=== PATIENT | female | born 1960 | race Caucasian/White ===

== ENCOUNTER → 2023-03-16 | Outpatient (CLI) | payer BC, OTHER ==
[~2023-03-16] VITALS: Ht 167.7 cm; Wt 85.4 kg
[~2023-03-16] MED LIST: ALEN70TA80 PO; AMIT150T PO; CALC-867 PO; CYCL10TA25 PO; GABA-486 PO; LISI20TA26 PO; SIMV40TA25 PO; [UNRECOGNIZED DRUG - OTHER]
== END | disposition home or self-care (01) ==
LOC: PREOP 05:23
PROVIDERS: ATTEND Specialist
DX: Z01.818 Encounter for other preprocedural examination (principal)

== ENCOUNTER 2023-03-20 08:30 | Day surgery (SDC) | payer BC, OTHER ==
[~2023-03-20] VITALS: Ht 167.7 cm; Wt 85.4 kg
[2023-03-20] VITALS (12 sets, daily range): BP systolic 121–156; BP diastolic 53–83
[~2023-03-20 08:30] MED LIST changes: +GEMCITABINE BLADIN ONE; +NS BLADIN ONE
[2023-03-20] MEDS ORDERED: GEMCITABINE 1 GM/NS 50 ML X 2 SYRINGES IR ONE ×2 (08:45)
[2023-03-20] MEDS: LACTATED RINGERS 1,000 ML 1,000 ML IV PRN ×2 (08:59→12:26)
--- NOTE | 2023-03-20 09:21 | Progress Note-Pre Operative ---
Pre-Operative Progress Note Date of Available H&P: Mar 16, 2023 Date H&P Reviewed: Mar 20, 2023 Time H&P Reviewed: 09:20 History & Physical: H&P Reviewed, No changes noted Pre-Operative Diagnosis: Recurrent bladder cancer Erickson HERNANDEZ MD Mar 20, 2023 09:21
[2023-03-20] MEDS ORDERED: fentaNYL INJECTION 100 MCG/2 ML VIAL ONE ×2 (09:53→12:20)
[2023-03-20] MEDS ORDERED: MIDAZOLAM INJ 2 MG/2 ML VIAL ONE (09:53)
--- NOTE | 2023-03-20 10:33 | Discharge Inst-Urology ---
Discharge Inst-Urology Reconcile Patient Problems Problems Reviewed?: Yes Final Diagnosis recurrent bladder tumor Patient Instructions/Follow Up Plan/Assessment/Instructions I will call you with pathology results in one week. Please make f/u appt in 3 months for cystoscopy in the office Increase oral fluids for 48 hours and then as needed. Diet and Activity as tolerated. If questions or concerns contact your physician Or seek help at emergency department. Erickson HERNANDEZ MD Mar 20, 2023 10:32
--- NOTE | 2023-03-20 11:34 | Progress Note-Post Operative ---
Post-Operative Progess Note Surgeon (s)/Ammonium Hydroxide Operator (s) Surgeon Erickson HERNANDEZ MD Ammonium Hydroxide Operator n/a Pre-Operative Diagnosis Recurrent bladder cancer Post-Operative Diagnosis same Post-Op Procedure Note Date of Procedure: Mar 20, 2023 Name of Procedure Performed: cysto/turbt intravesical instillation of gemcitabine Description & Findings Description and Findings: n/a Anesthesia Type general Estimated Blood Loss minimal Packing none. Specimen(s) collected/removed bladder tumor Erickson HERNANDEZ MD Mar 20, 2023 11:34
[2023-03-20] MEDS ORDERED: proPOfol INJECTION 200 MG/20 ML VIAL IV ONE (11:54)
[2023-03-20] MEDS ORDERED: SEVOFLURANE (ULTANE) 15 ML INHAL SOLN ONE (11:54)
[2023-03-20] MEDS ORDERED: dexAMETHasone INJ 10 MG/ML 1 ML VIAL ONE (11:54)
[2023-03-20] MEDS ORDERED: LIDOCAINE PF 2% 5 ML VIAL ONE (11:54)
[2023-03-20] MEDS ORDERED: ONDANSETRON INJECTION 4 MG/2 ML (SDV) ONE (11:54)
--- NOTE | 2023-03-20 12:21 | Anesthesia-General Post-Op ---
General Patient Condition Mental Status/LOC: Same as Preop Cardiovascular: Satisfactory Nausea/Vomiting: Absent Respiratory: Satisfactory Pain: Controlled Complications: Absent Post Op Complications Complications None Follow Up Care/Instructions Patient Instructions None needed. Anesthesia/Patient Condition Patient Condition Patient is doing well, no complaints, stable vital signs, no apparent adverse anesthesia problems. No complications reported per nursing. DAVID SUN CRNA Mar 20, 2023 12:21
[2023-03-20] MEDS ORDERED: ONDANSETRON INJECTION 4 MG/2 ML (SDV) IVP PRN (12:30)
[2023-03-20] MEDS ORDERED: HYDROmorphone INJECTION 2 MG/ML VIAL IV ONE (12:30)
[2023-03-20] MEDS ORDERED: fentaNYL INJECTION 100 MCG/2 ML VIAL IVP ONE (12:30)
--- NOTE | 2023-03-22 00:44 | OPERATIVE REPORT ---
DATE OF SERVICE: 03/20/2023 PREOPERATIVE DIAGNOSIS: Recurrent bladder tumors. POSTOPERATIVE DIAGNOSIS: Recurrent bladder tumors. PROCEDURE PERFORMED: Cystoscopy and bladder tumor resection with instillation of gemcitabine. FINDINGS: Two 2 cm frondular bladder tumors, posterior bladder wall. SPECIMEN: Bladder tumors. DESCRIPTION OF PROCEDURE: After informed consent was obtained, general anesthetic was administered. The patient received IV Levaquin. She was then prepped and draped in dorsal lithotomy position. Cystoscopy was then performed with a 22 Colombian cystoscope sheath and 30-degree lens. Normal ureteral orifices were found and tumors were noted as above. Cystoscope was then removed. A 25-Colombian resectoscope sheath was then inserted. Loop electrode was then used with monopolar cautery to resect the bladder tumors. A rollerball electrode was then used to cauterize the base of the bladder tumors. There was no evidence of perforation. No other tumors were seen. Bladder tumors were evacuated from the bladder and a 20-Colombian Lackey catheter was placed and gemcitabine was then instilled into the bladder. Catheter plug was then placed. The patient was then taken to the recovery room having tolerated the procedure well, the tumor site be left indwelling for 2 hours. Job ID: [id number] DocumentID: [id number] Dictated Date: 03/21/2023 17:00:24 Accounting Professional Date: 03/22/2023 00:42:00 Dictated By: Brittany HERNANDEZ MD
== END 2023-03-20 14:50 | disposition home or self-care (01) ==
LOC: SDC 08:30
PROVIDERS: ATTEND Specialist
DX: C67.9 Malignant neoplasm of bladder, unspecified (principal); F17.210 Nicotine dependence, cigarettes, uncomplicated
CPT/HCPCS: 87081; 88307